=== PATIENT | male | born 1960 | race Asian ===

== ENCOUNTER 2018-09-04 09:16 | Inpatient (IN) | payer BC, MEDICAID ==
[2018-09-04] MEDS ORDERED: Famotidine IV* 10 MG/ML 2 ML (20 mg) IV SLOW PU ONE (09:37)
[2018-09-04] MEDS ORDERED: methylPREDNISolone 125 MG* 2 ML VIAL IV ONE (09:37)
[2018-09-04] MEDS ORDERED: diPHENhydraMINE IV* 50 MG/ML 1 ml VIAL (BENADRYL) IV ONE (09:37)
[2018-09-04] MEDS ORDERED: Famotidine IV* 10 MG/ML 2 ML (20 mg) ONE (09:38)
--- NOTE | 2018-09-04 10:24 | ED ---
Allergic Reaction/Systemic - HPI Summary HPI Summary: The patient is a 58 year old M presenting [place] [facility] accompanied by daughter with a chief complaint of a possible allergic reaction since yesterday, 09/03/18. Patients daughter reported he was swollen in the face and legs yesterday after eating eggs. Daughter said the eggs were the only change is his diet prior to the reaction. Patients daughter stated he took an OTC ibuprofen and Nyquil before going to bed last night. Overnight swelling in both his face and legs increased today. Patient told daughter he could swallow ok. Upon arrival to the ED patient was 80% 02 saturation on room air. Daughter reported the patient suffered a previous cold over the past few days. Patient is unable to speak [place]orese. - History of Current Complaint Chief Complaint: EDAllergicReaction Hx Obtained From: Family/Stitcher Feeder - Daughter, patient does not speak malay Onset/Duration: Gradual Onset, Started days ago - Sx onset last night, cold for the past few days, Still Present Timing: Constant, Lasting Days - Sx onset last night, cold for the past few days Severity Currently: None Pain Intensity: 0 Pain Scale Used: 0-10 Numeric Location: Discrete @ - face and legs Character: Swelling Aggravating Factor(s): Nothing Alleviating Factor(s): Nothing Associated Signs And Symptoms: Negative: Throat Tightening - Allergies/Home Medications Allergies/Adverse Reactions: Allergies Allergy/AdvReac Type Severity Reaction Status Date / Time No Known Allergies Allergy Verified 09/04/18 09:26 Home Medications: Home Medications NK [No Home Medications Reported] 09/04/18 [History Confirmed 09/04/18] PMH/Surg Hx/FS Hx/Imm Hx Endocrine/Hematology History: Denies: Hx Diabetes Cardiovascular History: Denies: Hx Hypertension Infectious Disease History: No Infectious Disease History: Denies: Traveled Outside the [place] in Last 30 Days - Family History Known Family History: Negative: Hypertension, Diabetes - Social History Alcohol Use: None Substance Use Type: Reports: None Smoking Status (MU): Never Smoked Tobacco Review of Systems Positive: Other - Negative: throat closing Positive: Edema - BLE and face All Other Systems Reviewed And Are Negative: Yes Physical Exam - Summary Physical Exam Summary: Appearance: The patient is well-nourished in no acute distress and in no acute pain. Skin: The skin is warm and dry and skin color reflects adequate perfusion, no urticaria. HEENT: The head is normocephalic and atraumatic. The pupils are equal and reactive. The conjunctivae are clear and without drainage. Nares are patent and without drainage. Mouth reveals moist mucous membranes and the throat is without erythema and exudate. The external ears are intact. The ear canals are patent and without drainage. The tympanic membranes are intact. Neck: The neck is supple with full range of motion and non-tender. There are no carotid bruits. There is no neck vein distension. Respiratory: Chest is non-tender. Lungs are clear to auscultation and breath sounds are symmetrical and equal. Cardiovascular: Heart is regular rate and rhythm. There is no murmur or rub auscultated. There is facial edema and pulses are symmetrical and equal. Abdomen: The abdomen is soft and non-tender. There are normal bowel sounds heard in all four quadrants and there is no organomegaly palpated. Musculoskeletal: There is no back tenderness noted. Extremities are non-tender with full range of motion. There is good capillary refill. There is facial edema. Neurological: Patient is alert and oriented to person, place and time. The patient has symmetrical motor strength in all four extremities. Cranial nerves are grossly intact. Deep tendon reflexes are symmetrical and equal in all four extremities. Psychiatric: The patient has an appropriate affect and does not exhibit any anxiety or depression Triage Information Reviewed: Yes Vital Signs On Initial Exam: Initial Vitals Temp Pulse Resp BP Pulse Ox 97.8 F 75 18 0/0 80 09/04/18 09:22 09/04/18 09:22 09/04/18 09:22 09/04/18 09:22 09/04/18 09:22 Vital Signs Reviewed: Yes Diagnostics - Vital Signs Vital Signs Temp Pulse Resp BP Pulse Ox 09/04/18 09:22 97.8 F 75 18 0/0 80 - Laboratory Result Diagrams: 09/04/18 09:48 09/04/18 09:48 Lab Statement: Any lab studies that have been ordered have been reviewed, and results considered in the medical decision making process. - Radiology CXR Radiology Interpretation Completed By: Radiologist Summary of Radiographic Findings: CARDIOMEGALY WITH INTERSTITIAL EDEMA CONSISTENT WITH CHF. ED physician has reviewed this report. - CT Abdominal CT CT Interpretation Completed By: Radiologist Summary of CT Findings: 1. THE BLADDER IS MARKEDLY DISTENDED EXTENDING TO THE UMBILICUS. 2. THERE IS A TRACE AMOUNT OF PERIHEPATIC ASCITES WITH RETROPERITONEAL INFLAMMATORY CHANGE ON THE RIGHT, OF UNCLEAR ETIOLOGY. THE DIFFERENTIAL INCLUDES EARLY PANCREATITIS. ED physician reviewed this report. Neck CT CT Interpretation Completed By: Radiologist Summary of CT Findings: 1. THERE IS POSTERIOR PHARYNGEAL/PREVERTEBRAL EDEMA AT THE LEVEL OF THE OROPHARYNX,. WITHOUT LOCULATED FLUID COLLECTION, OF UNCLEAR ETIOLOGY. 2. FINDINGS SUGGESTIVE OF RIGHT VOCAL CORD PARALYSIS/ PARESIS. 3. RIGHT GREATER THAN LEFT BILATERAL PLEURAL EFFUSIONS. ED physician has reviewed this report. - EKG 12:13 Cardiac Rate: NL - 78 BPM EKG Rhythm: Sinus Rhythm Summary of EKG Findings: Normal sinus rhythm and rate of 78 BPM, non-specific changes in inferior leads. Re-Evaluation - Re-Evaluation First Eval Re-Evaluation Time: 10:25 Change: Improved Comment: Patient has improved. 100% 02 satuartion on room air Allergic Reaction Course/Dx - Course Course Of Treatment: Mr. Ramos presented accompanied by his daughter to translate for him. Reportedly he has been feeling under the weather with congestion for a few days and hasn't eaten much. Yesterday he had eggs which she does not normally eat. Last evening he noticed swelling in his face that worsened overnight and this morning he felt difficulty breathing as well as swelling. When he was triaged his pulse ox on room air was 80% and he was placed on oxygen brought back immediately to the room where I saw him. He had diffuse facial swelling . His tongue looks swollen and I could not see his posterior pharynx. He had sonorous expirations but no stridor. He said that this was new for him. He didn't take very strong respiratory efforts but gross his lungs were clear. He was tympanitic over his epigastrium and nontender. This may be why he is not taking good breaths. He had some pitting edema in his legs. He was hypertensive with a diastolic in the 120s. He was given medications for an allergic reaction here and did improve. An hour later I was able to take him off his oxygen without any drop in his pulse ox. He also reported symptomatic improvement. After my initial evaluation and notified Dr. Mcgee that he was here in case we needed an emergent airway. I spoke with Dr. Radford diamond wheel molder for licensed vocational nurse who came to the department and evaluated him. - Diagnoses Provider Diagnoses: Angioedema - Provider Notifications Discussed Care Of Patient With: Aden Mcgee Time Discussed With Above Provider: 10:09 Instructed by Provider To: Other - Discussed possible instability of patient. Dr. Radford, ICU, will evaluate patient. 1119 - Dr. Radford BNP, CTs to be done, patient admitted to be admitted by Dr. Radford. 1200 - Dr. Radford has admitted the patient, patient is being transferred to ICU. - Critical Care Time Critical Care Time: 30-74 min - 30 Discharge - Sign-Out/Discharge Documenting (check all that apply): Patient Departure - admit Patient Received Moderate/Deep Sedation with Procedure: No - Discharge Plan Condition: Stable Disposition: ADMITTED TO [facility] - Billing Disposition and Condition Condition: STABLE Disposition: Admitted to [facility] - Attestation Statements Document Initiated by Petronae: Yes Documenting Scribe: Armand Hylton Provider For Whom Petronae is Documenting (Include Credential): Carlos Tinoco MD Scribe Attestation: Mitch Goldberg Jacob Kolenda, scribed for Carlos Tinoco MD on 09/04/18 at 1411. Scribe Documentation Reviewed: Yes Provider Attestation: The documentation as recorded by the Mitch webb Jacob Kolenda accurately reflects the service I personally performed and the decisions made by Carlos ramirez MD Status of Scribe Document: Viewed
[2018-09-04 10:39] LABS: ABS Eosinophils 0.1 10^3/ul (0-0.6); ABS Lymphocytes 1.3 10^3/ul (1.0-4.8); ABS Monocytes 0.6 10^3/ul (0-0.8); ABS Neutrophils 4.2 10^3/ul (1.5-7.7); Eosinophil % 1.6 %; Hematocrit 40 % (42-52); Hemoglobin 12.6 g/dL (14.0-18.0); Lymphocyte % 20.5 %; Mean Corpuscular HGB Conc 32 g/dL (31-36); Mean Corpuscular Hemoglobin 29 pg (27-31); Mean Corpuscular Volume 91 fL (80-94); Mean Platelet Volume 8.2 fL (7.4-10.4); Nucleated Red Blood Cells % 0.1; Platelet Count 261 10^3/uL (150-450); Red Blood Count 4.33 10^6 /uL (4.18-5.48); Red Cell Distribution Width 14 % (10.5-15); White Blood Count 6.2 10^3/uL (3.5-10.8)
[2018-09-04 11:04] LABS: ALT 126 U/L (7-52); AST 72 U/L (13-39); Albumin 3.9 g/dL (3.2-5.2); Albumin/Globulin Ratio 1.4 (1-3); Alkaline Phosphatase 108 U/L (34-104); Anion Gap 4 mmol/L (2-11); BUN/Creatinine Ratio 24.6 (8-20); Blood Urea Nitrogen 17 mg/dL (6-24); C Reactive Protein 8.23 mg/L (<8.01); CO2 Carbon Dioxide 32 mmol/L (22-32); Calcium 8.6 mg/dL (8.6-10.3); Chloride 101 mmol/L (101-111); EGFR Non-African American 117.4 (>60); Globulin 2.7 g/dL (2-4); Glucose 141 mg/dL (70-100); Potassium 4.4 mmol/L (3.5-5.0); Sodium 137 mmol/L (135-145); Total Protein 6.6 g/dL (6.4-8.9)
[2018-09-04] MEDS ORDERED: Furosemide IV* 10 MG/ML VIAL (40 MG) IV ONE (11:38)
[2018-09-04 11:56] LABS: Cholesterol 106 mg/dL; HDL Cholesterol 48.6 mg/dL; LDL Cholesterol 40 mg/dL; Triglycerides 85 mg/dL
[2018-09-04 12:00] LABS: Troponin I 0.17 ng/mL (<0.04)
[2018-09-04] MEDS ORDERED: niCARdipine 0.1MG/ML IVPREMIX* 20 MG/200 ML BAG IV SCH (12:00)
[2018-09-04 12:20] LABS: TSH (Thyroid Stimulating Horm) 2.44 mcIU/mL (0.34-5.60)
[2018-09-04 13:30] LABS: Amylase 31 U/L (29-103)
--- NOTE | 2018-09-04 13:37 | HP ---
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 States that swelling started in leg and face yesterday afternoon, he took a ibuprofen and nyquil. He states he has felt chills and cold like symptoms a few days back, but no cough/sputum, denies cp/ sob, no abd pain/n/v, no fevers. This morning he was still swollen, friend saw he was swollen on his face and brought him in. He and she denied any shortness of breath this morning. She states he has some voice change, muffling like she notices, mild. in ER, he was awake, sats 80s on RA, started on NC. ER physician noted some stridor and facial swelling and tongue swelling, difficult to visualize the posterior pharynx. No resp distress noted though. Oxygen saturation improved on NC, given solumedrol 125mg IV, benadryl and famotidine IV. Shortly after patient states he felt better. He stated he ate eggs some days back, which otherwise he is vegetarian and has only eating eggs once years back without any reaction. He denies rash or other reaction prior to last night events. No new medications otherwise taken. CXR - cardiomegaly, congestion+ Vitals - sats 97% on 4L; HR 70s NSR; BP 190-200/110, RR 16 ENT consult called. I observed patient, no distress or stridor or wheezing noted. no acc muscle use. speaking clearly. denying any cough/difficulty swallowing, no drooling of secretions either. 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; family- and kids in [place] Allergies: NKDA Home Medications: None Tele: NSR Vitals: Vital Signs Temp 97.8 F 09/04/18 12:00 Pulse 84 09/04/18 14:00 Resp 16 09/04/18 14:00 BP 158/98 09/04/18 14:00 Pulse Ox 94 09/04/18 14:00 Intake & Output 09/03/18 09/04/18 09/04/18 18:59 06:59 18:59 Output Total 1825 Balance -1825 Weight 86.183 kg Output: Urine 1825 O2/Vent: NC 4L Infusions: heplock Current Medications: Diphenhydramine HCl (Benadryl Iv*) 25 mg IV Q8H LEV Stop: 09/05/18 17:59 Famotidine (Pepcid Iv*) 20 mg IV SLOW PU BID LEV Nicardipine/Sodium Chloride (Cardene 0.1mg/Ml Ivpremix*) 20 mg in 200 mls @ 50 mls/hr IV .(as Initial Rate) [facility]; Protocol Last Admin: 09/04/18 12:15 Dose: 50 mls/hr Dexamethasone Sodium Phosphate (8 mg/ Sodium Chloride) 52 mls @ 208 mls/hr IVPB Q6H [facility] Physical Exam: Constitutional: awake, alert, no distress, no diaphoresis Head: normocephalic, atraumatic Eyes: no pallor, no icterus; periorbital edema+ ENT: moist mucous membranes; tongue does not appear swollen, unable to visualize uvula but only base, unable to visualize posterior pharynx Neck: soft, supple, no jvd, no stridor CVS: normal rate, regular, no murmur Resp: bilateral air entry, no rhales, no wheeze, no rhonchi, no acc muscle use Abdomen/GI: soft, nontender, nondistended, BS+ Ext/Msk: warm, pulses+, generalized edema+ Skin: intact, warm Neuro: awake, alert, orientedx3, moving all extremities Labs: Laboratory Results - last 24 hr 09/04/18 09/04/18 09/04/18 09:48 09:48 09:48 WBC 6.2 RBC 4.33 Hgb 12.6 L Hct 40 L MCV 91 MCH 29 MCHC 32 RDW 14 Plt Count 261 MPV 8.2 Neut % (Auto) 67.4 Lymph % (Auto) 20.5 [place] % (Auto) 9.9 Eos % (Auto) 1.6 Baso % (Auto) 0.6 Absolute Neuts (auto) 4.2 Absolute Lymphs (auto) 1.3 Absolute Monos (auto) 0.6 Absolute Eos (auto) 0.1 Absolute Basos (auto) 0.0 Absolute Nucleated RBC 0.0 Nucleated RBC % 0.1 Sodium 137 Potassium 4.4 Chloride 101 Carbon Dioxide 32 Anion Gap 4 BUN 17 Creatinine 0.69 Est GFR ( Amer) 142.0 Est GFR (Non-Af Amer) 117.4 BUN/Creatinine Ratio 24.6 H Glucose 141 H Lactic Acid Calcium 8.6 Total Bilirubin 0.50 AST 72 H ALT 126 H Alkaline Phosphatase 108 H Troponin I 0.17 H* C-Reactive Protein 8.23 H B-Natriuretic Peptide > 1300 H Total Protein 6.6 Albumin 3.9 Globulin 2.7 Albumin/Globulin Ratio 1.4 Triglycerides 85 Cholesterol 106 LDL Cholesterol 40 HDL Cholesterol 48.6 Amylase 31 Lipase < 10 L TSH 2.44 09/04/18 12:39 WBC RBC Hgb Hct MCV MCH MCHC RDW Plt Count MPV Neut % (Auto) Lymph % (Auto) [place] % (Auto) Eos % (Auto) Baso % (Auto) Absolute Neuts (auto) Absolute Lymphs (auto) Absolute Monos (auto) Absolute Eos (auto) Absolute Basos (auto) Absolute Nucleated RBC Nucleated RBC % Sodium Potassium Chloride Carbon Dioxide Anion Gap BUN Creatinine Est GFR ( Amer) Est GFR (Non-Af Amer) BUN/Creatinine Ratio Glucose Lactic Acid 0.9 Calcium Total Bilirubin AST ALT Alkaline Phosphatase Troponin I C-Reactive Protein B-Natriuretic Peptide Total Protein Albumin Globulin Albumin/Globulin Ratio Triglycerides Cholesterol LDL Cholesterol HDL Cholesterol Amylase Lipase TSH Imaging: CXR 09/04 - cardiomegaly, congestion bilaterally+ CT neck 09/04 - reviewed - posterior pharyngeal/prevertebral edema, no collection ; right VC paralysis; bilateral pleural effusions CT abd/pelvis 09/04 - perihepatic ascites with right retroperit inflamm change; distended bladder EKG 09/04 - nsr, no st/t changes noted Assessment: 58y M with no sig past medical history, Vanessa 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 States that swelling started in leg and face yesterday afternoon, he took a ibuprofen and nyquil. He states he has felt chills and cold like symptoms a few days back. This morning he was still swollen, friend saw he was swollen on his face and brought him in. He and she denied any shortness of breath this morning. She states he has some voice change, muffling like she notices, mild. in ER, he was awake, sats 80s on RA, started on NC, BP 180-200/110s. ER physician noted some stridor and facial swelling and tongue swelling, difficult to visualize the posterior pharynx. No resp distress noted though. Oxygen saturation improved on NC, given solumedrol 125mg IV, benadryl and famotidine IV. Shortly after patient states he felt better. -Acute Hypoxic Respiratory Failure -suspected angioedema -Acute pulmonary congestion -Acute decompensated heart failure, unspecified -Hypertensive Urgency -Urinary retention Plan: Neuro- -awake/alert -Delirium prec; avoid BDZ CVS- -Hypertensive Urgency/Emergency; may be component of urinary retention/stress -started on cardene infusion; titrate to keep SBP 160-180 for now -no PO antihypertensives yet -Lasix 40mg IV x1 now -suspect decompensated CHF; congestion + elevated bnp + gross anasarca/edema -TTE to assess LV function -trend troponins; noted 0.17, EKG without st/t changes; ACS workup -check LE duplex for DVTs -Maintain MAP>65 Resp- -was hypoxic; CXR with congestion -no sig stridor noted now; CT neck noted with posterior pharyngeal edema but speaking to me clearly and without swallowing difficulty or difficult with breathing -will start decadron 8mg q8h, benadryl q8h, famotidine bid iv -ENT consult -any evidence of desaturation may require intubation, discussed with him and friend; currently he appears stable, repeat eval of oral/facial edema appears stable to me -close respiratory monitoring -no clear infectious etiology, nontoxic, no fevers/wbc elevation -bronchodilators PRN -IV diuretics for pulm congestion -Wean Fio2 to keep sat>92% -Bronchodilators PRN, Aspiration prec, Pulmonary Toilet ID- afebrile. wbc normal. CXR 09/04 with pulm congestion. no abx indicated at this time. steroids for pharyngeal swelling. GI- -NPO 2/2 to airway monitoring -noted elevated LFTs; alk phos not very elevated -check hepatitis panel -CT with perihep ascites+; CHF? amylase/lipase negative. -GI prophylaxis - h2b Renal- -Cr okay -CT wiht distended bladder; patient urinated on his own 850+cc -CXR with congestion -lasix 40mg IV x1 now; reassess -check urinalysis -strict I/O, replete to keep K>4, Mg>2 -bhatt as indicated Heme- -hg stable, plt stable -check LE venous duplex for DVT -hold heparin sq for today given edema and possible need for procedures/ intubation. -DVT proph with SCDs (if duplex neg) Endo- Maintain BG<200, insulin protocol as needed. Check hba1c and Tsh Musculsk- pressure ulcer prophylaxis. Bedrest. Wounds- none Nutrition- NPO DVT prophylaxis: SCD GI prophylaxis: h2b Central Line: no Arterial Line: no Bhatt Cathetor: no Disposition: Admit to ICU; Patient requires Critical Care/ICU for angioedema and airway monitoring, suspected CHF, hypertensive urgency requiring cardene Expected LOS>2 midnights Patient Clinical Status: unstable, critical Code Status: full code discussed with friend at bedside the current plan and problem list as well as plan. Total Critical Care time is 65 minutes, excluding procedures/teaching Andrea Radford MD [place] (Electronically Signed)
[2018-09-04] MEDS ORDERED: Albuterol 2.5 MG/3 ML NEB.SOL* (0.083%) INH PRN (14:35)
--- NOTE | 2018-09-04 15:26 | ECHO ---
*[facility]* [place] [address] Fax #: [phone] Transthoracic Echocardiogram Patient: Rachel, Height: 64 in / Ramo 162.6 cm : 1960 Weight: 189.6 lb / Study Date: 09/04/2018 86.2 kg Age: 58 BP: 210 / 128 Gender: M BMI/BSA: 32.6 HR: 85 bpm kg/m^2 / 2.01 m^2 *Temperature Regulator Pyrometer: * Collette Harmon [facility] *Referring Physician: * Andrea Radford *Reading Physician: * Ryan Joseph MD Indications: Congestive Heart Failure. SOB. History: No previous history. Conclusions Summary: 1. Left ventricle: Systolic function is normal. The estimated ejection fraction is 55-60%. Wall motion is normal; there are no regional wall motion abnormalities. 2. Right ventricle: Systolic pressure is within the normal range. 3. Mitral valve: There is no significant regurgitation. 4. Aortic valve: There is no evidence of stenosis. 5. Tricuspid valve: There is trivial regurgitation. 6. Pericardium, extracardiac: There is no significant pericardial effusion. 7. Impressions: No previous study was available for comparison. Study data: Transthoracic echocardiogram. Procedure: Transthoracic echocardiography was performed. Image quality was good. Complete 2D, spectral Doppler, and color flow Doppler. Location: ICU Patient status: Inpatient. Patient room number: 6. Rhythm: Normal sinus rhythm. Findings Left ventricle: The cavity size is normal. Wall thickness is normal. Systolic function is normal. The estimated ejection fraction is 55-60%. Wall motion is normal; there are no regional wall motion abnormalities. There is no consistent Doppler evidence of clinically significant diastolic dysfunction. Right ventricle: The cavity size is normal. Systolic function is normal. Systolic pressure is within the normal range. Left atrium: The atrium is at the upper limits of normal in size. Right atrium: The atrium is normal in size. Mitral valve: The leaflets are normal thickness. There is no evidence of stenosis. There is no significant regurgitation. The peak diastolic gradient is 3.1 mm Hg. Aortic valve: The valve is trileaflet. The leaflets are normal thickness. There is no evidence of stenosis. There is no significant regurgitation. The LVOT to aortic valve VTI ratio is 0.87. The ratio of LVOT to aortic valve peak velocity is 0.78. The ratio of LVOT to aortic valve mean velocity is 0.77. The mean systolic gradient is 4.6 mm Hg. The peak systolic gradient is 10.0 mm Hg. Tricuspid valve: The leaflets are normal thickness. There is no evidence of stenosis. There is trivial regurgitation. The peak diastolic gradient is 23.0 mm Hg. Pulmonic valve: The leaflets are normal thickness. There is no evidence of stenosis. There is mild to moderate regurgitation. The peak systolic gradient is 3.1 mm Hg. Aorta: Aortic arch: The aortic arch is appears normal. The aortic root is not dilated. Pericardium: There is no significant pericardial effusion. Pulmonary arteries: Not well visualized. Systemic veins: Inferior vena cava: The vessel is dilated. The respirophasic diameter changes are in the normal range (>= 50%). Measurements Left ventricle Value Ref Aortic valve Value Ref EDY, LAX 5.2 cm 4.2 - 5.8 Elkin diam, ED 2.3 cm ----- ESD, LAX 3.1 cm 2.5 - 4.0 Peak v, S 1.58 m/sec ----- FS, LAX 42 % 25 - 43 VTI, S 27.7 cm ----- PW, ED, LAX 1.0 cm 0.6 - 1.0 Mean grad, S 4.6 mm Hg ----- EF 72 % 52 - 72 Peak grad, S 10.0 mm Hg ----- E', lat elkin, TDI (L) 9.0 cm/sec >=10.0 E/e', lat elkin, 10 Mitral valve Value Ref TDI Peak E 0.88 m/sec ----- E', med elkin, TDI 7.0 cm/sec >=7.0 Peak A 0.73 m/sec ----- E/e', med elkin, 13 Decel time 147 ms ----- TDI Peak grad, D 3.1 mm Hg ----- E', avg, TDI 8.0 cm/sec Peak E/A ratio 1.21 ----- E/e', avg, TDI 11 <=14 Pulmonic valve Value Ref LVOT Value Ref Peak v, S 0.88 m/sec ----- Peak connie, S 1.23 m/sec Peak grad, S 3.1 mm Hg ----- VTI, S 24.1 cm Peak grad, S 6 mm Hg Tricuspid valve Value Ref Mean grad, S 3 mm Hg Peak grad, D 23.0 mm Hg ----- TR peak v 2.4 m/sec <=2.8 Ventricular septum Value Ref IVS, ED, LAX 1.0 cm 0.6 - 1.0 Aortic root Value Ref Root diam 3.7 cm <4.1 Right ventricle Value Ref EDY, LAX 3.2 cm Ascending aorta Value Ref EDY major ax, A4C (L) 3.1 cm 5.9 - 8.3 AAo AP diam, S 2.9 cm ----- Pressure, S 26 mm Hg Aortic arch Value Ref Left atrium Value Ref Arch diam 2.4 cm ----- AP dim, ES (H) 4.03 cm 3.00 - 4.00 Pulmonary artery Value Ref SI dim ES, LAX 4.0 cm Pressure, S 22.9 mm Hg ----- ML dim, A4C 4.7 cm Vol/bsa, ES, 2-p 33 ml/m^2 16 - 34 Inferior vena cava Value Ref Diam 2.4 cm ----- Right atrium Value Ref SI dim, ES 4.3 cm 3.4 - 5.3 ML dim, ES, A4C 3.0 cm 2.6 - 4.4 Estimated RAP 3 mm Hg Legend: (L) and (H) nino values outside specified reference range. Prepared and electronically signed by Ryan Joseph MD 09/04/2018 15:26
[2018-09-04 16:12] LABS: Urine Appearance Clear; Urine Bilirubin Negative (Negative); Urine Blood Negative (Negative); Urine Color Colorless; Urine Glucose Negative (Negative); Urine Ketones Negative (Negative); Urine Nitrite Negative (Negative); Urine Protein Negative (Negative); Urine Specific Gravity 1.004 (1.010-1.030); Urine Urobilinogen Negative (Negative)
[2018-09-04 16:54] LABS: Troponin I 0.14 ng/mL (<0.04)
[2018-09-04] MEDS ORDERED: Dexamethasone IV* 8 MG in NS 0.9% 50 ML* 50 ML IVPB SCH (18:00)
[2018-09-04] MEDS ORDERED: diPHENhydraMINE IV* 25 MG in NS 0.9% 50 ML* 50 ML IVPB SCH (18:00)
[2018-09-04] MEDS: diPHENhydraMINE IV* 50 MG/ML 1 ml VIAL (BENADRYL) IV SCH (18:16)
[2018-09-04] MEDS: Dexamethasone IV* 8 MG in NS 0.9% 50 ML* 50 ML IVPB SCH (18:53)
[2018-09-04] MEDS: Famotidine IV* 10 MG/ML 2 ML (20 mg) IV SLOW PU SCH (21:24)
[2018-09-05] MEDS: Dexamethasone IV* 8 MG in NS 0.9% 50 ML* 50 ML IVPB SCH ×4 (00:02→18:21)
[2018-09-05] MEDS: diPHENhydraMINE IV* 50 MG/ML 1 ml VIAL (BENADRYL) IV SCH (01:07)
[2018-09-05 06:18] LABS: Hematocrit 43 % (42-52); Hemoglobin 13.7 g/dL (14.0-18.0); Mean Corpuscular HGB Conc 32 g/dL (31-36); Mean Corpuscular Hemoglobin 29 pg (27-31); Mean Corpuscular Volume 92 fL (80-94); Mean Platelet Volume 8.2 fL (7.4-10.4); Platelet Count 287 10^3/uL (150-450); Red Blood Count 4.69 10^6 /uL (4.18-5.48); Red Cell Distribution Width 14 % (10.5-15); White Blood Count 6.9 10^3/uL (3.5-10.8)
[2018-09-05 06:30] LABS: Activated Partial Thrombo Time 29.3 seconds (26.0-36.3); INR 1.09 (0.82-1.09)
[2018-09-05 06:46] LABS: ALT 127 U/L (7-52); AST 50 U/L (13-39); Albumin 3.8 g/dL (3.2-5.2); Albumin/Globulin Ratio 1.4 (1-3); Alkaline Phosphatase 96 U/L (34-104); Anion Gap 3 mmol/L (2-11); BUN/Creatinine Ratio 22.7 (8-20); Blood Urea Nitrogen 15 mg/dL (6-24); CO2 Carbon Dioxide 36 mmol/L (22-32); Calcium 8.7 mg/dL (8.6-10.3); Chloride 103 mmol/L (101-111); Creatine Kinase 221 U/L (10-223); EGFR African American 149.5 (>60); EGFR Non-African American 123.5 (>60); Globulin 2.8 g/dL (2-4); Glucose 163 mg/dL (70-100); Indirect Bilirubin 0.5 mg/dL (0.3-1.0); Magnesium 2.2 mg/dL (1.9-2.7); Phosphorus 4.8 mg/dL (2.5-5.0); Potassium 5.1 mmol/L (3.5-5.0); Sodium 142 mmol/L (135-145); Total Protein 6.6 g/dL (6.4-8.9); Troponin I 0.11 ng/mL (<0.04)
[2018-09-05] MEDS: Famotidine IV* 10 MG/ML 2 ML (20 mg) IV SLOW PU SCH ×2 (08:05→21:25)
[2018-09-05] MEDS ORDERED: Furosemide IV* 10 MG/ML VIAL (40 MG) IV ONE (08:44)
[2018-09-05 09:58] LABS: Hepatitis B Surface Antigen Nonreactive (Nonreactive)
[2018-09-05 10:22] LABS: Hepatitis C Antibody Nonreactive (Nonreactive)
--- NOTE | 2018-09-05 11:04 | PN ---
Progress Note - Progress Note Date of Service: 09/05/18 Note: Progress Note -- Critical Care 24 hour events -awake, alert -overnight desaturations when he sleeps, snoring+, obstruction+ -on NC, no distress now -feels better -visibly less facial edema and arm edema -no complaints of pain/n/v/abdpain/sob/cp, no difficulty swallowing -states he has mild hoarseness of voice past 1-2 days Language barrier, speaks darek but I am able to communicate with patient. Tele: NSR Vitals: Vital Signs Temp 97.8 F 09/05/18 06:12 Pulse 83 09/05/18 09:30 Resp 15 09/05/18 09:30 BP 145/75 09/05/18 09:30 Pulse Ox 92 09/05/18 09:30 Intake & Output 09/04/18 09/05/18 09/05/18 18:59 06:59 18:59 Intake Total 343.4 Output Total 3375 1000 Balance -3375 -656.6 Weight 86.183 kg 77.7 kg Intake: IV Fluids 52 NS (0.9%) 52 Medicated IV 291.4 Decadron 131 Nicardipine 160.4 Output: Urine 3375 1000 Other: Estimated Void Large # Voids 1 O2/Vent: NC 4L Infusions: heplock Current Medications: Albuterol (Ventolin 2.5 Mg/3 Ml Neb.Chandni*) 2.5 mg INH Q4H PRN PRN Reason: SOB/WHEEZING Famotidine (Pepcid Iv*) 20 mg IV SLOW PU BID LEV Last Admin: 09/05/18 08:05 Dose: 20 mg Nicardipine/Sodium Chloride (Cardene 0.1mg/Ml Ivpremix*) 20 mg in 200 mls @ 50 mls/hr IV .(as Initial Rate) LEV; Protocol Last Admin: 09/04/18 12:15 Dose: 50 mls/hr Dexamethasone Sodium Phosphate (8 mg/ Sodium Chloride) 52 mls @ 208 mls/hr IVPB Q6HR LEV Last Admin: 09/05/18 06:04 Dose: 208 mls/hr Physical Exam: Constitutional: awake, alert, no distress, no diaphoresis Head: normocephalic, atraumatic Eyes: no pallor, no icterus; periorbital edema+ minimal ENT: moist mucous membranes; tongue not swollen; able to visualize uvula Neck: soft, supple, no jvd, no stridor CVS: normal rate, regular, no murmur Resp: bilateral air entry, no rhales, no wheeze, no rhonchi, no acc muscle use Abdomen/GI: soft, nontender, nondistended, BS+; abd erythema improved Ext/Msk: warm, pulses+, edema improved Skin: intact, warm Neuro: awake, alert, orientedx3, moving all extremities Labs: Laboratory Results - last 24 hr 09/04/18 09/04/18 09/04/18 09:48 09:48 09:48 WBC RBC Hgb Hct MCV MCH MCHC RDW Plt Count MPV INR (Anticoag Therapy) APTT Sodium 137 Potassium 4.4 Chloride 101 Carbon Dioxide 32 Anion Gap 4 BUN 17 Creatinine 0.69 Est GFR ( Amer) 142.0 Est GFR (Non-Af Amer) 117.4 BUN/Creatinine Ratio 24.6 H Glucose 141 H Hemoglobin A1c 6.4 H Lactic Acid Calcium 8.6 Phosphorus Magnesium Total Bilirubin 0.50 Direct Bilirubin Indirect Bilirubin AST 72 H ALT 126 H Alkaline Phosphatase 108 H Total Creatine Kinase Troponin I 0.17 H* C-Reactive Protein 8.23 H B-Natriuretic Peptide > 1300 H Total Protein 6.6 Albumin 3.9 Globulin 2.7 Albumin/Globulin Ratio 1.4 Triglycerides 85 Cholesterol 106 LDL Cholesterol 40 HDL Cholesterol 48.6 Amylase 31 Lipase < 10 L TSH 2.44 Urine Color Urine Appearance Urine pH Ur Specific [place] Urine Protein Urine Ketones Urine Blood Urine Nitrate Urine Bilirubin Urine Urobilinogen Ur Leukocyte Esterase Urine Glucose 09/04/18 09/04/18 09/04/18 12:39 16:00 16:00 WBC RBC Hgb Hct MCV MCH MCHC RDW Plt Count MPV INR (Anticoag Therapy) APTT Sodium Potassium Chloride Carbon Dioxide Anion Gap BUN Creatinine Est GFR ( Amer) Est GFR (Non-Af Amer) BUN/Creatinine Ratio Glucose Hemoglobin A1c Lactic Acid 0.9 Calcium Phosphorus Magnesium Total Bilirubin Direct Bilirubin Indirect Bilirubin AST ALT Alkaline Phosphatase Total Creatine Kinase Troponin I 0.14 H* C-Reactive Protein B-Natriuretic Peptide Total Protein Albumin Globulin Albumin/Globulin Ratio Triglycerides Cholesterol LDL Cholesterol HDL Cholesterol Amylase Lipase TSH Urine Color Colorless Urine Appearance Clear Urine pH 7.0 Ur Specific [place] 1.004 L Urine Protein Negative Urine Ketones Negative Urine Blood Negative Urine Nitrate Negative Urine Bilirubin Negative Urine Urobilinogen Negative Ur Leukocyte Esterase Negative Urine Glucose Negative 09/05/18 09/05/18 09/05/18 06:06 06:06 06:06 WBC 6.9 RBC 4.69 Hgb 13.7 L Hct 43 MCV 92 MCH 29 MCHC 32 RDW 14 Plt Count 287 MPV 8.2 INR (Anticoag Therapy) 1.09 APTT 29.3 Sodium 142 Potassium 5.1 H Chloride 103 Carbon Dioxide 36 H Anion Gap 3 BUN 15 Creatinine 0.66 L Est GFR ( Amer) 149.5 Est GFR (Non-Af Amer) 123.5 BUN/Creatinine Ratio 22.7 H Glucose 163 H Hemoglobin A1c Lactic Acid Calcium 8.7 Phosphorus 4.8 Magnesium 2.2 Total Bilirubin 0.60 Direct Bilirubin 0.10 Indirect Bilirubin 0.5 AST 50 H ALT 127 H Alkaline Phosphatase 96 Total Creatine Kinase 221 Troponin I 0.11 H* C-Reactive Protein B-Natriuretic Peptide Total Protein 6.6 Albumin 3.8 Globulin 2.8 Albumin/Globulin Ratio 1.4 Triglycerides Cholesterol LDL Cholesterol HDL Cholesterol Amylase Lipase TSH Urine Color Urine Appearance Urine pH Ur Specific [place] Urine Protein Urine Ketones Urine Blood Urine Nitrate Urine Bilirubin Urine Urobilinogen Ur Leukocyte Esterase Urine Glucose Imaging: CXR 09/04 - cardiomegaly, congestion bilaterally+ CT neck 09/04 - reviewed - posterior pharyngeal/prevertebral edema, no collection ; right VC paralysis; bilateral pleural effusions CT abd/pelvis 09/04 - perihepatic ascites with right retroperit inflamm change; distended bladder EKG 09/04 - nsr, no st/t changes noted Assessment: 58y M with no sig past medical history, D[place] Speaking male 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 States that swelling started in leg and face yesterday afternoon, he took a ibuprofen and nyquil. He states he has felt chills and cold like symptoms a few days back. This morning he was still swollen, friend saw he was swollen on his face and brought him in. He and she denied any shortness of breath this morning. She states he has some voice change, muffling like she notices, mild. in ER, he was awake, sats 80s on RA, started on NC, BP 180-200/110s. ER physician noted some stridor and facial swelling and tongue swelling, difficult to visualize the posterior pharynx. No resp distress noted though. Oxygen saturation improved on NC, given solumedrol 125mg IV, benadryl and famotidine IV. Shortly after patient states he felt better. -Acute Hypoxic Respiratory Failure -suspected angioedema -Acute pulmonary congestion -Acute decompensated heart failure, unspecified -Hypertension improved -Urinary retention Plan: Neuro- -awake/alert -Delirium prec; avoid BDZ CVS- -Hypertension improved; BP better; remains off cardene infusion -will start low dose diuretic for outpatient or CCB -TTE with no LV dysfunction or valvular disease noted -repeat lasix 40mg IV x1 today -suspect decompensated CHF mild; IV diuretics; making good urine, neg balance; edema better -troponins downtrended; EKG normal -LE duplex neg for DVT -Maintain MAP>65 Resp- -remains on NC now; cont to wean down; no distress/cough/sputum -CXR 09/05 with congestion -has evidence of snoring, desaturations when he sleeps, will keep nocturnal NIV/ CPAP -will eventually need sleep study outpatient -facial edema better, no tongue swelling noted now; no stridor; swallow eval by nursing this morning and passed; overall better -will cont decadron today, start taper tomorrow; d/c benadryl, cont h2b -can start po diet -cont IV diuretics -discussed with ENT on phone, improving already, CT scan reviewed also and airway patent, midl edema; will have ENT eval if any further change in status -close respiratory monitoring today in ICU -no clear infectious etiology, nontoxic, no fevers/wbc elevation -bronchodilators PRN -Wean Fio2 to keep sat>92% -Bronchodilators PRN, Aspiration prec ID- afebrile. wbc normal. CXR 09/05 with pulm congestion. no abx indicated at this time. steroids for pharyngeal swelling. GI- -swallow eval passed bedside -oral swelling/facial swelling better; can start cardiac diet mech soft -midl elevated LFTs; trending -possible congestion of liver? -check hepatitis panel -CT with perihep ascites+; CHF? amylase/lipase negative. -GI prophylaxis - h2b Renal- -Cr okay -CT wiht distended bladder; patient urinated on his own 850+cc -CXR with congestion 09/05 -K 5.1 -lasix 40mg IV x1 today repeat -urinalysis without proteinuria -strict I/O, replete to keep K>4, Mg>2 -bhatt as indicated Heme- -hg stable, plt stable -LE duplex neg DVT -DVT proph with SCDs; lovenox sq daily for proph Endo- Maintain BG<200, insulin protocol as needed. hba1c 6.4 and Tsh 2.44 Musculsk- pressure ulcer prophylaxis. oob to chair Wounds- none Nutrition- soft mech cardiac diet DVT prophylaxis: SCD/lovenox GI prophylaxis: h2b Central Line: no Arterial Line: no Bhatt Cathetor: no Disposition: Patient requires Critical Care/ICU for angioedema and airway monitoring, suspected CHF; if continues improving, possible downgrade to medical floor tomorrow Patient Clinical Status: stable Code Status: full code Andrea Radford MD [employer] (Electronically Signed)
[2018-09-05] MEDS: Enoxaparin(*) 40 MG/0.4 ML SYR SUBCUT SCH (11:47)
[2018-09-05 15:01] LABS: Hepatitis B Surface Ab Not Immune (Immune)
[2018-09-06] MEDS: Dexamethasone IV* 8 MG in NS 0.9% 50 ML* 50 ML IVPB SCH ×2 (00:26→05:51)
[2018-09-06 05:08] LABS: Hematocrit 41 % (42-52); Hemoglobin 12.9 g/dL (14.0-18.0); Mean Corpuscular HGB Conc 32 g/dL (31-36); Mean Corpuscular Hemoglobin 29 pg (27-31); Mean Corpuscular Volume 91 fL (80-94); Mean Platelet Volume 8.2 fL (7.4-10.4); Platelet Count 294 10^3/uL (150-450); Red Blood Count 4.46 10^6 /uL (4.18-5.48); Red Cell Distribution Width 14 % (10.5-15); White Blood Count 9.1 10^3/uL (3.5-10.8)
[2018-09-06 05:23] LABS: ALT 87 U/L (7-52); AST 19 U/L (13-39); Albumin 3.5 g/dL (3.2-5.2); Albumin/Globulin Ratio 1.3 (1-3); Alkaline Phosphatase 79 U/L (34-104); BUN/Creatinine Ratio 29.4 (8-20); Blood Urea Nitrogen 20 mg/dL (6-24); Calcium 8.7 mg/dL (8.6-10.3); Chloride 99 mmol/L (101-111); EGFR African American 144.4 (>60); EGFR Non-African American 119.4 (>60); Globulin 2.6 g/dL (2-4); Glucose 183 mg/dL (70-100); Indirect Bilirubin 0.4 mg/dL (0.3-1.0); Magnesium 2.3 mg/dL (1.9-2.7); Phosphorus 3.3 mg/dL (2.5-5.0); Potassium 4.9 mmol/L (3.5-5.0); Sodium 139 mmol/L (135-145); Total Protein 6.1 g/dL (6.4-8.9)
[2018-09-06 05:29] LABS: CO2 Carbon Dioxide 41 mmol/L (22-32)
[2018-09-06] MEDS: Famotidine IV* 10 MG/ML 2 ML (20 mg) IV SLOW PU SCH (08:11)
[2018-09-06] MEDS: Furosemide IV* 10 MG/ML VIAL (40 MG) IV ONE ×2 (10:36→10:59)
--- NOTE | 2018-09-06 10:50 | PN ---
Progress Note - Progress Note Date of Service: 09/06/18 Note: Progress Note -- Critical Care 24 hour events -awake, alert -overnight desaturations when he sleeps, snoring+, obstruction+; on NIV -on NC 5, no distress now -feels better -visibly less facial edema and arm edema -no complaints of pain/n/v/abdpain/sob/cp, no difficulty swallowing; started eating yesterday Language barrier, speaks darek but I am able to communicate with patient. Tele: NSR Vitals: O2/Vent: NC 4-5L Infusions: heplock Current Medications: Albuterol (Ventolin 2.5 Mg/3 Ml Neb.Chandni*) 2.5 mg INH Q4H PRN PRN Reason: SOB/WHEEZING Enoxaparin Sodium (Lovenox(*)) 40 mg SUBCUT Q24H [facility] Last Admin: 09/05/18 11:47 Dose: 40 mg Famotidine (Pepcid Iv*) 20 mg IV SLOW PU BID [facility] Last Admin: 09/06/18 08:11 Dose: 20 mg Furosemide (Lasix Iv*) 40 mg IV ONCE ONE Stop: 09/06/18 10:33 Physical Exam: Constitutional: awake, alert, no distress, no diaphoresis Head: normocephalic, atraumatic Eyes: no pallor, no icterus; periorbital edema resolved ENT: moist mucous membranes; tongue not swollen; able to visualize uvula Neck: soft, supple, no jvd, no stridor CVS: normal rate, regular, no murmur Resp: bilateral air entry, no rhales, no wheeze, no rhonchi, no acc muscle use Abdomen/GI: soft, nontender, nondistended, BS+; abd erythema improved Ext/Msk: warm, pulses+, edema improved Skin: intact, warm Neuro: awake, alert, orientedx3, moving all extremities Labs: Laboratory Results - last 24 hr 09/04/18 09/04/18 09/06/18 14:30 14:30 04:55 WBC RBC Hgb Hct MCV MCH MCHC RDW Plt Count MPV Sodium 139 Potassium 4.9 Chloride 99 L Carbon Dioxide 41 H* Anion Gap Not Reportable BUN 20 Creatinine 0.68 Est GFR ( Amer) 144.4 Est GFR (Non-Af Amer) 119.4 BUN/Creatinine Ratio 29.4 H Glucose 183 H Calcium 8.7 Phosphorus 3.3 Magnesium 2.3 Total Bilirubin 0.60 Direct Bilirubin 0.20 H Indirect Bilirubin 0.4 AST 19 ALT 87 H Alkaline Phosphatase 79 Total Protein 6.1 L Albumin 3.5 Globulin 2.6 Albumin/Globulin Ratio 1.3 Hepatitis A IgG Ab Positive Hepatitis A IgM Ab Nonreactive Hepatitis B Antibody Not immune A Hep Bs Antigen Nonreactive Hep Bs Antibody, Quant 6.03 Hep B Core IgM Ab Nonreactive Hepatitis C Antibody Nonreactive Hepatitis C Ab Index < 0.0 09/06/18 04:55 WBC 9.1 RBC 4.46 Hgb 12.9 L Hct 41 L MCV 91 MCH 29 MCHC 32 RDW 14 Plt Count 294 MPV 8.2 Sodium Potassium Chloride Carbon Dioxide Anion Gap BUN Creatinine Est GFR ( Amer) Est GFR (Non-Af Amer) BUN/Creatinine Ratio Glucose Calcium Phosphorus Magnesium Total Bilirubin Direct Bilirubin Indirect Bilirubin AST ALT Alkaline Phosphatase Total Protein Albumin Globulin Albumin/Globulin Ratio Hepatitis A IgG Ab Hepatitis A IgM Ab Hepatitis B Antibody Hep Bs Antigen Hep Bs Antibody, Quant Hep B Core IgM Ab Hepatitis C Antibody Hepatitis C Ab Index Imaging: CXR 09/04 - cardiomegaly, congestion bilaterally+ CT neck 09/04 - reviewed - posterior pharyngeal/prevertebral edema, no collection ; right VC paralysis; bilateral pleural effusions CT abd/pelvis 09/04 - perihepatic ascites with right retroperit inflamm change; distended bladder EKG 09/04 - nsr, no st/t changes noted Assessment: 58y M with no sig past medical history, D[place] Speaking 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 States that swelling started in leg and face yesterday afternoon, he took a ibuprofen and nyquil. He states he has felt chills and cold like symptoms a few days back. This morning he was still swollen, friend saw he was swollen on his face and brought him in. He and she denied any shortness of breath this morning. She states he has some voice change, muffling like she notices, mild. in ER, he was awake, sats 80s on RA, started on NC, BP 180-200/110s. ER physician noted some stridor and facial swelling and tongue swelling, difficult to visualize the posterior pharynx. No resp distress noted though. Oxygen saturation improved on NC, given solumedrol 125mg IV, benadryl and famotidine IV. Shortly after patient states he felt better. -Acute Hypoxic Respiratory Failure -suspected angioedema -Acute pulmonary congestion -Acute decompensated heart failure, unspecified -Hypertension improved -Urinary retention Plan: Neuro- -awake/alert -Delirium prec; avoid BDZ CVS- -Hypertension improved; BP better; no antihypertensives/infusions required -TTE with no LV dysfunction or valvular disease noted -repeat lasix 40mg IV x1 today -suspect decompensated CHF mild; IV diuretics; making good urine, neg balance; edema better -troponins downtrended; EKG normal -LE duplex neg for DVT -Maintain MAP>65 Resp- -remains on NC 4-5L; cont to wean down; no distress/cough/sputum -no sig congestion on exam or wheezing -has evidence of snoring, desaturations when he sleeps, will keep nocturnal CPAP ; will arrange for possible home oxygen, and will need outpatient sleep study -facial edema better, no tongue swelling noted now; no stridor; swallow eval by nursing this morning and passed; overall better -taper steroids to prednisone 40mg daily; taper after discharge for next week; stil unclear etiology of edema and erythema as far as ppt'ing factor/exposure to chemicals at restaurant? -cont IV diuretics -bronchodilators PRN -Wean Fio2 to keep sat>92% -Bronchodilators PRN, Aspiration prec ID- afebrile. wbc normal. CXR 09/05 with pulm congestion. no abx indicated at this time. steroids for pharyngeal swelling. GI- -swallow eval passed -tolerating cardiac po diet -midl elevated LFTs; improving; possible congestion of liver? -hep panel reviewed; will need hep B vaccine outpatient; otherwise negative panel -CT with perihep ascites+; CHF? amylase/lipase negative. -GI prophylaxis - h2b Renal- -Cr stable -CT wiht distended bladder; patient urinated on his own 850+cc -CXR with congestion 09/05 -K 5.1 -> 4.9 -lasix 40mg IV x1 today repeat -urinalysis without proteinuria -strict I/O, replete to keep K>4, Mg>2 -no bhatt Heme- -hg stable, plt stable -LE duplex neg DVT -DVT proph with SCDs; lovenox sq daily for proph Endo- Maintain BG<200, insulin protocol as needed. hba1c 6.4 and Tsh 2.44 Musculsk- pressure ulcer prophylaxis. oob to chair Wounds- none Nutrition- soft mech cardiac diet DVT prophylaxis: SCD/lovenox GI prophylaxis: h2b Central Line: no Arterial Line: no Bhatt Cathetor: no Disposition: hemodyn and resp status stable/improved; can be transferred to medical floor Patient Clinical Status: stable Code Status: full code Andrea Radford MD Rn Clinical Quality (Electronically Signed)
[2018-09-06] MEDS: predniSONE TAB* 20 MG PO SCH (10:59)
[2018-09-06] MEDS: Enoxaparin(*) 40 MG/0.4 ML SYR SUBCUT SCH (10:59)
[2018-09-06] MEDS: Famotidine TAB* 20 MG PO SCH (20:58)
[2018-09-07 07:10] LABS: Hematocrit 42 % (42-52); Hemoglobin 13.4 g/dL (14.0-18.0); Mean Corpuscular HGB Conc 32 g/dL (31-36); Mean Corpuscular Hemoglobin 29 pg (27-31); Mean Corpuscular Volume 90 fL (80-94); Mean Platelet Volume 7.9 fL (7.4-10.4); Platelet Count 296 10^3/uL (150-450); Red Blood Count 4.62 10^6 /uL (4.18-5.48); Red Cell Distribution Width 14 % (10.5-15); White Blood Count 10.2 10^3/uL (3.5-10.8)
[2018-09-07 07:32] LABS: Albumin 3.4 g/dL (3.2-5.2); Albumin/Globulin Ratio 1.4 (1-3); BUN/Creatinine Ratio 35.6 (8-20); Calcium 8.5 mg/dL (8.6-10.3); EGFR African American 133.1 (>60); Globulin 2.5 g/dL (2-4); Indirect Bilirubin 0.7 mg/dL (0.3-1.0); Magnesium 2.3 mg/dL (1.9-2.7); Phosphorus 2.7 mg/dL (2.5-5.0); Potassium 4.3 mmol/L (3.5-5.0); Total Bilirubin 0.8 mg/dL (0.2-1.0); Total Protein 5.9 g/dL (6.4-8.9)
[2018-09-07] MEDS ORDERED: acetaZOLAMIDE VIAL* 250 MG in NS 0.9% 50 ML* 50 ML IVPB ONE (10:06)
[2018-09-07] MEDS: predniSONE TAB* 20 MG PO SCH (10:17)
[2018-09-07] MEDS: Famotidine TAB* 20 MG PO SCH (10:17)
[2018-09-07] MEDS: Enoxaparin(*) 40 MG/0.4 ML SYR SUBCUT SCH (11:44)
--- NOTE | 2018-09-07 17:25 | PN ---
Subjective Date of Service: 09/07/18 Interval History: Pt transferred from ICU yesterday. Weaning O2 - SaO2 95% on 1-2 L supplemental O2. Pt reports dizzy on standing, and mild chronic knee pain, but otherwise denies complaints. Denies SOB, FLETCHER, or chest pain. Furosemide last given yesterday morning. Bicarb is still 41. Will give one dose of acetazolamide today and follow response. Per chart - pt has lost 23 lbs since admission. Objective Active Medications: Albuterol (Ventolin 2.5 Mg/3 Ml Neb.Chandni*) 2.5 mg INH Q4H PRN PRN Reason: SOB/WHEEZING Enoxaparin Sodium (Lovenox(*)) 40 mg SUBCUT Q24H [facility] Last Admin: 09/07/18 11:44 Dose: 40 mg Famotidine (Pepcid Tab*) 20 mg PO BID [facility] Last Admin: 09/07/18 10:17 Dose: 20 mg Prednisone (Deltasone Tab*) 40 mg PO DAILY [facility] Last Admin: 09/07/18 10:17 Dose: 40 mg Vital Signs - 8 hr 09/07/18 09/07/18 09/07/18 11:32 13:16 15:11 Temperature 97.7 F 98.6 F Pulse Rate 69 66 Respiratory 17 18 16 Rate Blood Pressure 137/92 119/77 (mmHg) O2 Sat by Pulse 97 95 Oximetry Oxygen Devices in Use Now: Nasal Cannula - 1L Ears/Nose/Mouth/Throat: Clear Oropharnyx, Mucous Membranes Moist, - - no edema of lips/face Neck: NL Appearance and Movements; NL JVP Respiratory: Clear to Auscultation Cardiovascular: RRR Abdominal: NL Sounds; No Tenderness; No Distention Lymphatic: No Cervical Adenopathy Extremities: - - trace edema over ankles b/l Skin: No Rash or Ulcers Neurological: Alert and Oriented x 3, NL Gait Result Diagrams: 09/07/18 06:58 09/07/18 06:58 Microbiology and Other Data: Microbiology 09/04/18 16:00 Nasal Screen MRSA (PCR) - Final Nasal Mrsa Not Detected Assess/Plan/Problems-Billing Assessment: 58M without sig PMH presents with angioedema - has swelling of face and LEs with voice changes, found to be hypoxic, with elevated troponin and pulmonary congestion, now s/p IV steroids/antihistamines, switched to PO and continuing with diuresis. Unclear etiology of this event. - Patient Problems (1) Respiratory failure with hypoxia Comment: Unclear etiology of pulm edema and possible angioedema. Patient may have had contact allergy that precipitated some presenting symptoms. TTE unrevealing but BNP elevated - may have mild diastolic HF. Also desaturates when sleeping. LE dopplers negative. - Pulm consulted - wean O2 as tolerated, daily weights and Is&Os - will need outpatient sleep study - s/p furosemide IV, now one dose Diamox 09/07 - cont steroid taper, on famotidine (2) DVT prophylaxis Comment: lovenox Status and Disposition: Weaning O2 - discharge to home when off O2.
--- NOTE | 2018-09-07 19:56 | CONS ---
PULMONARY CONSULTATION REPORT: DATE OF CONSULT: 09/07/18 CONSULTATION REQUESTED BY: Dr. Cammie Sosa. REASON FOR CONSULT: Evaluation of shortness of breath and hypoxemic respiratory failure. HISTORY OF PRESENT ILLNESS: The patient is a 58-year-old obese, Nepali- speaking male, nonsmoker, who presents for evaluation of significant swelling of face and lower extremities. The patient reports that he has been mostly on vegetarian diet. He recently started eating tolliver and poultry. He had a fish on the day of admission. He was noted to be having significant swelling of the face and lower extremity swelling the day before presentation. He has taken ibuprofen and NyQuil. He also felt cold-like symptoms and chills. Denies chest pain, shortness of breath, nausea, vomiting, abdominal pain, fevers, recent sick contacts. His swelling has worsened and was brought in for further evaluation. The patient also reported some muffling of the voice when he arrived in the ED. He was noted to have O2 sats around 80s and was placed on nasal cannula. There was a documentation of strider and tongue swelling while in the ED. The patient was given Solu-Medrol 125, Benadryl and famotidine. He started feeling better since. Denies any rash or itching. He has no other past medical problems and has not been on any medications. The patient's O2 requirements have improved after diuresis. He was subsequently downgraded to the floor. He had 23-pound weight loss since the diuresis. His bicarb started trending up since the diuresis. He has received 1 dose of acetazolamide. The patient seen and examined at bedside. The patient able to provide history appropriately, though he is not a good historian. The patient reported no medical issues in the past. 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 He has been working more recently as one of his co- workers had stopped coming to work and he has to do 2 people's job. The patient denies any gradually worsening symptoms recently. He reports history of snoring, disruptive sleep. He does not have a bed partner currently. His family is in [place]. The patient also was evaluated by the ENT. PAST MEDICAL HISTORY: None as per the patient. PAST SURGICAL HISTORY: Denies any. MEDICATIONS AT HOME: He does not take any medications. ALLERGIES: No known drug allergies. FAMILY HISTORY: No significant medical problems. SOCIAL HISTORY: Nonsmoker. No alcohol or drug abuse. 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 REVIEW OF SYSTEMS: All 14 systems reviewed as per HPI. PHYSICAL EXAM: The patient in bed, in no apparent distress. Vital Signs: Temperature 98.6, pulse 66 beats per minute, respiratory rate 16 per minute, O2 sat 95% on 2 L, blood pressure 119/77. HEENT: Pupils equal, reactive to light. Mucous membranes moist. Lungs: Clear to auscultation. Abdomen: Soft, nontender, nondistended. Bowel sounds present. Extremities: Trace lower extremity edema. Skin: No rash. DIAGNOSTIC STUDIES/LAB DATA: WBC count 10.2, hemoglobin 13.4, hematocrit 42, platelet count 296. Sodium 141, potassium 4.3, chloride 99, bicarb 41, BUN 26, creatinine 0.73. LFTs showed mildly elevated ALT. Troponin was mildly elevated. BNP significantly elevated on admission. Chest x-ray was personally reviewed by me. Evidence of pulmonary vascular congestion noted. Dopplers of lower extremity showed no DVT. Echocardiogram: No significant abnormality noted. IMPRESSION AND RECOMMENDATIONS: 58-year-old male with acute onset of facial swelling, lower extremity swelling, and shortness of breath. The patient reports eating fish prior to this episode. Symptoms are concerning for acute anaphylactic reaction, possibly from ingesting fish. The patient significantly improved currently. Would start titrating oxygen down. His swelling is significantly improved. I would avoid any further diuresis. I agree with acetazolamide for 2 days. Given elevated troponins and acute onset of symptoms, would evaluate further for pulmonary embolism though it is less likely. The patient to have CTA in the morning. Will also obtain stress test prior to the discharge. Given body habitus and history of snoring and hypoxemia, worsening while sleeping, will need to evaluate for possible sleep apnea, which can be done as outpatient. Thank you for allowing me to participate in the care of your patient. Above plan discussed with Dr. Cammie Sosa and Dr. Andrea Radford. [id number]/[facility] #: [id number] [facility] CENTERSandra
[2018-09-07] MEDS ORDERED: Senna TAB PO PRN (20:57)
[2018-09-07] MEDS ORDERED: Magnesium Hydroxide LIQ* 30 ML UDC PO PRN (20:57)
[2018-09-07] MEDS ORDERED: Polyethylene Glycol 3350* 17 GM PACKET PO PRN (20:57)
[2018-09-07] MEDS ORDERED: Magnesium Hydroxide LIQ* 30 ML UDC ONE (21:19)
[2018-09-07] MEDS ORDERED: Docusate CAP* 100 MG ONE (21:21)
[2018-09-07] MEDS: Magnesium Hydroxide LIQ* 30 ML UDC PO SCH (21:25)
[2018-09-07] MEDS: Docusate CAP* 100 MG PO SCH (21:25)
[2018-09-08 06:01] LABS: Hematocrit 46 % (42-52); Hemoglobin 14.7 g/dL (14.0-18.0); Mean Corpuscular HGB Conc 32 g/dL (31-36); Mean Corpuscular Hemoglobin 29 pg (27-31); Mean Corpuscular Volume 91 fL (80-94); Platelet Count 299 10^3/uL (150-450); Red Blood Count 5.01 10^6 /uL (4.18-5.48); Red Cell Distribution Width 13 % (10.5-15)
[2018-09-08 06:20] LABS: BUN/Creatinine Ratio 25.7 (8-20); Calcium 8.7 mg/dL (8.6-10.3); EGFR Non-African American 108.3 (>60); Magnesium 2.7 mg/dL (1.9-2.7); Phosphorus 2.9 mg/dL (2.5-5.0); Potassium 4.5 mmol/L (3.5-5.0)
[2018-09-08] MEDS ORDERED: predniSONE TAB* 10 MG PO SCH (09:00)
[2018-09-08] MEDS ORDERED: Famotidine TAB* 20 MG PO SCH (09:00)
[2018-09-08] MEDS: Docusate CAP* 100 MG PO SCH (09:57)
[2018-09-08] MEDS: Magnesium Hydroxide LIQ* 30 ML UDC PO SCH (09:57)
[2018-09-08] MEDS: Enoxaparin(*) 40 MG/0.4 ML SYR SUBCUT SCH (13:24)
[2018-09-08 15:59] VITALS: BP 147/90
--- NOTE | 2018-09-08 16:43 | PN ---
Progress Note - Progress Note Date of Service: 09/08/18 - Pulm f/u note Note: Pt seen and examined at bedside. Pt reports feeling better. He was titrated off O2 and was saturating 94% on RA. Denies any acute events o/n Active Medications Generic Name Dose Route Start Last Admin Trade Name Freq PRN Reason Stop Dose Admin Albuterol 2.5 mg 09/04/18 14:35 Ventolin 2.5 Mg/3 Ml Neb.Chandni* INH Q4H PRN SOB/WHEEZING Enoxaparin Sodium 40 mg 09/05/18 12:00 09/08/18 13:24 Lovenox(*) SUBCUT 40 mg Q24H LEV Administration Famotidine 20 mg 09/08/18 09:00 09/08/18 10:19 Pepcid Tab* PO 20 mg DAILY LEV Administration Magnesium Hydroxide 30 ml 09/07/18 20:57 Milk Of Magnesia Liq* PO BID PRN CONSTIPATION Polyethylene Glycol/Electrolytes 17 gm 09/07/18 20:57 Miralax* PO DAILY PRN CONSTIPATION Prednisone 30 mg 09/08/18 09:00 09/08/18 10:19 Deltasone Tab* PO 30 mg DAILY LEV Administration Senna 1 tab 09/07/18 20:57 Senokot Tab* PO BEDTIME PRN CONSTIPATION Vital Signs Temp Pulse Resp BP Pulse Ox 98.9 F 77 16 147/90 98 09/08/18 15:27 09/08/18 15:27 09/08/18 15:27 09/08/18 15:27 09/08/18 15:27 O/E: Pt in NAD HEENT: PERRLA, no JVD Lungs: Good a/e b/l, no wheeze CVS: S1, S2+, regular Abd: Soft, BS+ Ext: Normal ROM Neuro: No focal deficits Skin: No rash Laboratory Results - last 24 hr 09/08/18 09/08/18 05:40 05:40 WBC 7.0 RBC 5.01 Hgb 14.7 Hct 46 MCV 91 MCH 29 MCHC 32 RDW 13 Plt Count 299 MPV 8.0 Sodium 138 Potassium 4.5 Chloride 103 Carbon Dioxide 33 H Anion Gap 2 BUN 19 Creatinine 0.74 Est GFR ( Amer) 131.0 Est GFR (Non-Af Amer) 108.3 BUN/Creatinine Ratio 25.7 H Glucose 122 H Calcium 8.7 Phosphorus 2.9 Magnesium 2.7 I/R: 58M without sig PMH presents with angioedema - has swelling of face and LEs with voice changes, found to be hypoxic, with elevated troponin and pulmonary congestion, now s/p IV steroids/antihistamines, switched to PO and continuing with diuresis. Suspect anaphylaxis sec to ingestion of fish Pt responded to treatment Swelling has resolved Able to be titrated off O2 Venous duples negative, hemodynamically stable, PE less likely as alternate dx present with fluid overload Will need stress test to r/o ischemia Will need sleep study Renal function improved Hypercarbia improved Overall doing well F/u as out pt in sleep clinic D/w Dr Sosa
--- NOTE | 2018-09-09 00:06 | DS ---
CC: Dr. Amanda Chan; [facility] * DISCHARGE SUMMARY: DATE OF ADMISSION: 09/04/18 DATE OF DISCHARGE: 09/08/18 PRIMARY CARE PHYSICIAN: None. We will refer to [facility]. PRIMARY DIAGNOSES: 1. Acute anaphylactic reaction with angioedema likely from fish ingestion. 2. Pulmonary edema. 3. Nocturnal hypoxia, possibly sleep apnea. CONSULTS: Pulmonology, Dr. Amanda Chan. DISCHARGE MEDICATIONS: Epinephrine intramuscular to use in case of anaphylaxis. HISTORY OF PRESENT ILLNESS: A 58-year-old male without significant past medical history who speaks Pashto, who is presenting to the emergency room, brought by a friend at work for swelling in his legs and face. The patient and his friends state that the swelling started in his legs and face 1 day prior to presentation in the afternoon. The patient had taken ibuprofen and NyQuil, but by the morning, he was still swollen. The friend saw the swelling in his face and brought him in. The patient denied shortness of breath, chest pain, abdominal pain, or fevers. The patient has had voice changes and muffling type of sound, which was mild. The patient has been mostly in a vegetarian diet, but recently started eating tolliver and poultry and had fish on the day prior to presentation. He may have also felt some cold-like symptoms such as chills. HOSPITAL COURSE: In the emergency room, he was noted to have hypoxia at 80s and was placed on nasal cannula. He may have also had stridor with tongue swelling. He was given Solu-Medrol 125, Benadryl, and famotidine with slight improvement in symptoms. He did not have a noticeable rash. He was given furosemide IV with some improvement in his oxygen requirements, and he was admitted to the ICU where he was further diuresed; however, as his bicarb had increased to 41, he was switched to 1 dose of acetazolamide, and by next day, his lower extremity edema was gone, his shortness of breath had resolved, he was able to come off of his oxygen supplement, and his bicarb returned to near normal at 33. The patient was seen by Dr. Chan of Pulmonology and thought to have had an anaphylactic reaction to eating fish, which can at times cause pulmonary edema. By day of discharge, the patient was feeling back to his baseline and was interested in returning home. Of note, throughout admission, it was was noted that he had worsening hypoxia at night, so it is deemed that he would be a good candidate for outpatient sleep study, and he was also referred for an outpatient stress test, which was unable to be performed on day of discharge. REVIEW OF SYSTEMS: A complete 10-point review of systems was performed with only pertinent positive being chronic knee pain. PHYSICAL EXAMINATION: Afebrile, heart rate 70s, blood pressure 147/90, respiratory rate 16, oxygen saturation 98% on room air. In general, he is a well-appearing man , friendly, alert, and conversant, speaking through [employer] flexographic press helper on iPad at bedside. He is in no acute distress, without increased work of breathing. HEENT: Pupils equal, round, and reactive to light. Moist mucous membranes. Neck: No JVD. Lungs: Clear to auscultation bilaterally. Abdomen: Soft, nontender, nondistended. Lower Extremities: Without edema. Skin: No rash. PERTINENT DIAGNOSTIC DATA: CBC on discharge unremarkable. Creatinine normal. TSH 2.44. BNP over 1300. CRP 8. Troponin 0.17 peak. Hemoglobin A1c 6.4. Hepatitis A IgG positive, IgM negative. Hepatitis B antibody not immune with hep B surface antigen nonreactive and cor nonreactive. Hep C antibody nonreactive. Abdomen and pelvis CT with bladder markedly distended on day of admission extending to the umbilicus with trace amount of perihepatic ascites within the retroperitoneal area. Inflammatory change in the right of unclear etiology. Right greater than left bilateral pleural effusions. Neck CT with posterior pharyngeal/prevertebral edema at the level of the oropharynx without loculated fluid collection of unclear etiology. Findings suggestive of right vocal cord paralysis/paresis, right greater than left bilateral pleural effusions. Transthoracic echocardiogram, LV with normal systolic function and estimated EF 55% to 60% with normal wall motion without regional wall motion abnormalities. RV systolic pressure within normal range. Mitral and aortic valves unremarkable. Tricuspid valve with trivial regurgitation. Lower extremity venous Dopplers without DVT bilaterally. DISCHARGE PLAN: The patient is to establish care with [facility], and he will also follow up with Dr. Amanda Chan for outpatient sleep study. He was also referred for an outpatient exercise stress test. He completed a course of antihistamines and steroids while admitted over 5 days and he was not discharged on medications except for an EpiPen in case of return of anaphylaxis symptoms. He was encouraged to eat a healthy diet low in processed food, avoid fish, and resume activity as tolerated. DISPOSITION: To home. CONDITION: Good. TIME SPENT: Approximately 60 minutes were spent on discharge of this patient, more than half of which was spent on care coordination at bedside for interview and exam. [id number]/[facility] #: [id number] MTDD
== END 2018-09-08 21:00 | disposition home or self-care (01) | DRG 811 ==
LOC: ED 09:16 → ICU 11:28 → MED 09-06 09:03
PROVIDERS: ADMIT Internal Medicine Critical Care Medicine; ATTEND Internal Medicine
PROC: 5A09357 Assistance with Respiratory Ventilation, Less than 24 Consecutive Hours, Continuous Positive Airway Pressure (ICD-10-PCS; principal; 2018-09-04)
DX: T78.03XA Anaphylactic reaction due to other fish, initial encounter (principal); J96.01 Acute respiratory failure with hypoxia; J90 Pleural effusion, not elsewhere classified; R18.8 Other ascites; J81.1 Chronic pulmonary edema; T78.3XXA Angioneurotic edema, initial encounter; G47.30 Sleep apnea, unspecified; M25.569 Pain in unspecified knee; G89.29 Other chronic pain; J38.01 Paralysis of vocal cords and larynx, unilateral; I07.1 Rheumatic tricuspid insufficiency; I16.0 Hypertensive urgency; R33.9 Retention of urine, unspecified; N32.89 Other specified disorders of bladder; I10 Essential (primary) hypertension
CPT/HCPCS: 36415; 70490; 71045; 74176; 80048; 80053; 80061; 80076; 81003; 82150; 82550; 83036; 83605; 83690; 83735; 83880; 84100; 84443; 84484; 85025; 85027; 85610; 85730; 86140; 86705; 86706; 86708; 86709; 87340; 87641; 93005; 93306; 93970; 94660; 99285; A9270-GY; J1100; J1120; J1200; J1650; J1940; J2930; J7512